=== PATIENT | female | born 1970 | race Caucasian/White ===

== ENCOUNTER → 2016-10-18 | Outpatient (CLI) | payer BC ==
[~2016-10-18] MED LIST: CETI-273 PO; CYCL-375 PO; HYDR-4246 PO; IBUP-2067 PO; LEVO125T11 PO; LISI-621 PO; ONDA4TAB7 PO; PANT40TA27 PO; PREG150C PO; SERT100T12 PO; SPIR25TA4 PO; TIZA4TAB4 PO; TRAM50TA4 PO
== END ==
LOC: WC.BC 11:06
DX: Z12.31 Encounter for screening mammogram for malignant neoplasm of breast (principal)
CPT/HCPCS: 77063; G0202

== ENCOUNTER → 2016-10-29 | Outpatient (CLI) | payer BC ==
--- NOTE | 2016-10-29 15:38 | DI ---
Indication: ITS.REASON: W18.39XA OTHER FALL ON SAME LEVEL, INITIAL ENCOUNTER; M25.561 ERINN PROCEDURE: KNEE RIGHT 4 OR > MORE VIEWS: Encounter: Initial Comparison: None Findings: There is no acute fracture, dislocation or malalignment identified. No significant joint space narrowing. No joint effusion or degenerative change appreciated. Slight lateral patellar tilting bilaterally. Impression: No acute osseous abnormality. .
== END ==
LOC: IMA 15:03
PROVIDERS: ATTEND Internal Medicine
DX: M25.561 Pain in right knee (principal); Z91.81 History of falling